=== PATIENT | male | born 1975 | race Two or more races ===

== ENCOUNTER 2016-12-02 11:07 | Day surgery (SDC) | payer OTHER ==
[~2016-12-02] VITALS: Ht 172.7 cm; Wt 81.3 kg
[2016-12-02] VITALS (12 sets, daily range): BP systolic 120–148; BP diastolic 71–91; PULSE 46–68; RESP 11–19; Ht 172.7 cm; Wt 81.3 kg
[2016-12-02] MEDS ORDERED: SOD CHLORIDE 0.9% 1,000 ML IV SCH (11:30)
[2016-12-02] MEDS ORDERED: CEFAZOLIN 2 GM/50 ML (PMX) 50 ML IVPB ONE (11:30)
[2016-12-02] MEDS ORDERED: ALLO300T2 PO (12:29)
[2016-12-02] MEDS ORDERED: TELM1TAB PO (12:29)
[2016-12-02] MEDS ORDERED: METF-730 PO (12:29)
[2016-12-02] MEDS ORDERED: FENO200 PO (12:30)
[2016-12-02] MEDS ORDERED: POLYMYXIN/BACITRACIN 1L IRRIG ONE (13:58)
[2016-12-02] MEDS ORDERED: BUPIVACAINE 0.25% (MPF) 30 ML INJ ONE (13:58)
[2016-12-02] MEDS ORDERED: FENTAnyl 50 MCG/ML VIAL ONE (14:07)
[2016-12-02] MEDS ORDERED: MIDAZOLAM 1 MG/ML 2 ML INJ ONE (14:07)
[2016-12-02] MEDS ORDERED: GLYCOPYRROLATE 0.4 MG INJ ONE (14:45)
[2016-12-02] MEDS ORDERED: LIDOCAINE 2% (SDV) 5 ML INJ ONE (14:45)
[2016-12-02] MEDS ORDERED: PROPOFOL 20 ML ONE (14:46)
[2016-12-02] MEDS ORDERED: ROCURONIUM 50 MG INJ ONE (14:46)
[2016-12-02] MEDS ORDERED: ONDANSETRON 4 MG INJ ONE (14:46)
[2016-12-02] MEDS ORDERED: NEOSTIGMINE 3 MG/3 ML SYRINGE ONE (14:46)
[2016-12-02] MEDS ORDERED: CEFAZOLIN 1 GM INJ ONE (14:51)
[2016-12-02] MEDS ORDERED: KETOROLAC 30 MG INJ ONE (14:53)
[2016-12-02] MEDS ORDERED: HYDROCODONE/APAP (5/325) TAB PO ONE (15:00)
[2016-12-02] MEDS ORDERED: MEPERIDINE 25 MG INJ IV PRN (15:00)
[2016-12-02] MEDS: HYDROmorphONE (0.2 MG/ML) 10ML SYG IV PRN ×3 (15:00→15:31)
[2016-12-02] MEDS ORDERED: HYDROmorphONE (0.2 MG/ML) 10ML SYG IV PRN (15:00)
[2016-12-02] MEDS ORDERED: DIPHENHYDRAMINE 50 MG INJ IV PRN (15:00)
[2016-12-02] MEDS ORDERED: FENTAnyl 50 MCG/ML VIAL IV PRN (15:00)
[2016-12-02] MEDS ORDERED: ONDANSETRON 4 MG INJ IV PRN (15:00)
--- NOTE | 2016-12-02 16:10 | OPR ---
DATE OF OPERATION: 12/02/2016 INDICATION: This is a 41-year-old male with a left inguinal hernia. He requests surgical repair. Risks, alternatives, benefits, and personnel were discussed with the patient. The patient expresses understanding and consents to the operation. PREOPERATIVE DIAGNOSIS: Left inguinal hernia. POSTOPERATIVE DIAGNOSIS: Incarcerated left inguinal hernia. OPERATION PERFORMED: 1. Open incarcerated left inguinal hernia repair with medium size Ultrapro hernia [place] [address]. 2. Left ilioinguinal nerve block, CPT code 59709. SURGEON: Christopher Quiles MD SPECIMENS: None. COMPLICATIONS: None. ANESTHESIA: General. DESCRIPTION OF PROCEDURE: The patient was taken to the OR and prepped and draped in the usual ster ile fashion. Surgical timeout was performed. IV antibiotics were given. Left inguinal oblique inc ision is made with a 10 blade. Dissection cautery was carried down to external oblique fascia which was opened with a 15 blade. This incision is extended medial inferiorly and lateral superiorly wit h Metzenbaum scissors. Cord structures are identified and encircled with Leoma drain and incarcer ated indirect hernia was reduced. This area was reinforced with the disk portion of the UltraPro he rnia system mesh which is fixated to the inguinal ligament from the pubic tubercle along the shelvin g edge of the inguinal ligament with a running 0 Prolene. The disk mesh was secured to the internal oblique with interrupted 3-0 Vicryl. Onlay mesh was also secured in a similar fashion with a runni ng 0 Prolene from the pubic tubercle along the shelving edge of the inguinal ligament. Straps are c reated and reapproximated with interrupted 0 Prolene to recreate the inguinal ring. Onlay mesh was secured to the internal oblique with interrupted 3-0 Vicryl. External oblique fascia was closed wit h running 3-0 Vicryl. Clarke's fascia was closed with interrupted 3-0 Vicryl. Skin was closed with skin heraclio. Local anesthesia was injected into the incisional site. Additionally, left ilioingu inal block was performed identifying the ASIS medial and superior, proximal 1 to 2 cm from the ASIS. Inguinal nerve block was performed with local anesthesia. Dry dressings were applied. Dictated By: CHRISTOPHER QUILES MD SB/NTS Conf#: [id number] [facility]#: [id number]
== END 2016-12-02 17:42 | disposition home or self-care (01) ==
LOC: SDS 11:07
PROVIDERS: ATTEND Surgery
DX: K40.30 Unilateral inguinal hernia, with obstruction, without gangrene, not specified as recurrent (principal)
CPT/HCPCS: 49507; C1781; J0690; J1170; J1885; J2250; J2405; J2710; J3010; Z7512; Z7610